=== PATIENT | male | born 1960 | race Caucasian/White ===

== ENCOUNTER 2021-03-30 00:03 | Emergency (ER) | payer OTHER ==
[~2021-03-30 00:03] MED LIST: MELOXICAM15 MG PO; MOBIC15 MG PO; TRAMADOL HCL50 MG PO
[2021-03-30 00:40] LABS: BASOPHIL 0.9 % (0-2); EOSINOPHIL 2.3 % (0-5); HCT 48.3 % (42.0-52.0); HGB 16.2 g/dl (13.2-18.0); LYMPHOCYTE 19.9 % (15-48); MCH 29.3 pg (25.0-31.0); MCHC 33.5 g/dL (32.0-36.0); MCV 87.5 fL (78.0-100.0); NEUTROPHIL 68.1 % (41-80); NRBC 0; PLT 221 K/uL (150-400); RBC 5.52 M/uL (4.70-6.00); RDW 12.7 % (11.5-14.0); WBC 9.8 K/uL (4.0-10.5)
[2021-03-30 01:12] LABS: INR 1.04 (0.9-1.2); PTT 29.1 SECONDS (24.4-34.7)
[2021-03-30 01:42] LABS: ALBUMIN 4.3 g/dL (3.4-5.0); BILIRUBIN - TOTAL 0.6 mg/dL (0.2-1.0); BUN/CREAT RATIO (CALC) 19.1 RATIO; CREATININE 0.68 mg/dL (0.67-1.17); POTASSIUM 3.8 mmol/L (3.5-5.1); TOTAL PROTEIN 8.3 g/dL (6.4-8.2)
== END 2021-03-30 07:05 | disposition other institution (70) ==
LOC: FER 00:03
PROVIDERS: Emergency Medicine Emergency Medical Services
DX: I21.4 Non-ST elevation (NSTEMI) myocardial infarction (principal); I25.110 Atherosclerotic heart disease of native coronary artery with unstable angina pectoris; E11.9 Type 2 diabetes mellitus without complications; K21.9 Gastro-esophageal reflux disease without esophagitis; E66.9 Obesity, unspecified; Z20.822 Contact with and (suspected) exposure to COVID-19; Z79.84 Long term (current) use of oral hypoglycemic drugs; Z79.899 Other long term (current) drug therapy
CPT/HCPCS: 36415; 71045; 71275; 80053; 83880; 84484; 85025; 85379; 85610; 85730; 93005; J1644; J2270; J2405; Q9967; U0002